=== PATIENT | female | born 1960 | race Caucasian/White ===

== ENCOUNTER 2018-12-28 22:02 | Emergency (ER) | payer OTHER ==
[2018-12-28] MEDS ORDERED: Ondansetron 4 MG Tab.DIS PO ONE (22:41)
--- NOTE | 2018-12-28 22:49 | EDM.PDOC ---
ED HPI GENERAL MEDICAL PROBLEM - General Chief Complaint: Gastrointestinal Problem Stated Complaint: FAINTED FROM COLONOSCOPY PREP Time Seen by Provider: 12/28/18 22:20 Source of Information: Reports: Patient History Limitations: Reports: No Limitations - History of Present Illness INITIAL COMMENTS - FREE TEXT/NARRATIVE: 58-year-old female took a colonoscopy prep all day, tonight was sitting on the toilet and felt very nauseous and thought she was going to throw up. She called her to come in and help her and by that time she fainted. She went unresponsive and he didn't think he could feel a pulse so he gave her a few chest compressions but within a few minutes she opened her eyes and asked him what happened. She now feels much better. She did not have any emesis. No chest pain or shortness of breath. 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 Denies: Fever, Chills Respiratory: Denies: Shortness of Breath Cardiovascular: Denies: Chest Pain GI/Abdominal: Reports: Diarrhea, Nausea. Denies: Abdominal Pain, Vomiting ED EXAM, GENERAL - Physical Exam Exam: See Below Exam Limited By: No Limitations General Appearance: Alert, No Apparent Distress Eye Exam: Bilateral Eye: Normal Inspection Head: Atraumatic Respiratory/Chest: No Respiratory Distress, Lungs Clear Cardiovascular: Regular Rate, Rhythm. No: Tachycardia GI/Abdominal: Soft, Non-Tender Extremities: Normal Inspection. No: Pedal Edema Neurological: Alert, Oriented Course - Vital Signs Last Recorded V/S: Last Vital Signs Temp 97.4 F 12/28/18 22:17 Pulse 62 12/28/18 22:17 Resp 16 12/28/18 22:17 BP 118/77 12/28/18 22:17 Pulse Ox 96 12/28/18 22:17 Orthostatic Blood Pressure [ 94/69 Standing] Orthostatic Blood Pressure [ 123/72 Sitting] Orthostatic Blood Pressure [ 126/73 Supine] - Orders/Labs/Meds Meds: Medications Discontinued Medications Generic Name Dose Route Start Last Admin Trade Name Elizabeth PRN Reason Stop Dose Admin Ondansetron HCl 4 mg 12/28/18 22:41 12/28/18 22:44 Zofran Odt PO 12/28/18 22:42 4 mg ONETIME ONE Administration - Re-Assessments/Exams Free Text/Narrative Re-Assessment/Exam: 12/28/18 22:48 Orthostatic blood pressures were checked and systolic pressure did drop when standing but did not have significant symptoms. She was given 1 dose of oral Zofran, and encouraged to continue with frequent small amounts of fluid. Departure - Departure Time of Disposition: 22:53 Disposition: Home, Self-Care 01 Clinical Impression: Syncope, vasovagal - Discharge Information Instructions: Syncope, [id number] Referrals: Jaclyn Cuevas PA-C [Primary Care Provider] - Forms: ED Department Discharge Care Plan Goals: Frequent small amounts of hydration while awake will be helpful. Move slowly this evening, and return in the morning for you're procedure as scheduled. Return anytime if worsening or recurring fainting for further evaluation.
== END 2018-12-28 22:56 | disposition home or self-care (01) ==
LOC: JP.ED 22:02
DX: R55 Syncope and collapse (principal)
CPT/HCPCS: 99283; A9270

== ENCOUNTER 2018-12-29 07:58 | Day surgery (SDC) | payer OTHER ==
[2018-12-29] MEDS ORDERED: Lactated Ringers 1,000 ML IV SCH (08:30)
[2018-12-29] MEDS ORDERED: fentaNYL 100 MCG/2 ML SDV ONE (09:10)
[2018-12-29] MEDS ORDERED: Midazolam 1 MG/ML 2 ML SDV ONE (09:10)
[2018-12-29] MEDS ORDERED: Propofol 200 MG/20 ML SDV ONE (09:10)
--- NOTE | 2018-12-29 13:55 | OR ---
DATE OF PROCEDURE: 12/29/2018 SURGEON: Farooq Reynolds MD PREOPERATIVE DIAGNOSIS: Colon cancer screening. POSTOPERATIVE DIAGNOSIS: Unremarkable colonoscopy. PROCEDURE: Colonoscopy to the cecum. ANESTHESIA: IV anesthesia with monitored anesthesia care. INDICATION: This 58-year-old white female is referred for a colonoscopy for colon cancer screening. She says her last colonoscopic exam was done 10 years ago. I counseled her for the procedure, including risks and alternatives, and she gave her informed consent to proceed. DESCRIPTION OF PROCEDURE: The patient was placed in the left lateral decubitus position. IV anesthesia was administered by the Anesthesia Service. Time-out was held. A rectal exam was performed, which was unremarkable. The flexible video Olympus colonoscope was introduced through her anus, up her rectum, out her colon all the way to the cecum. Once the cecum was reached, the scope was slowly withdrawn, examining the mucosa throughout. No mucosal abnormalities were noted. The scope was retroflexed in the rectum with the distal rectum appearing unremarkable. The scope was straightened and removed. She tolerated the procedure well. Farooq Reynolds MD /[id number]
== END 2018-12-29 10:50 | disposition home or self-care (01) ==
LOC: JP.SDS 07:58
PROVIDERS: ATTEND Surgery
DX: Z12.11 Encounter for screening for malignant neoplasm of colon (principal); E78.5 Hyperlipidemia, unspecified
CPT/HCPCS: 45378; J2250; J2704; J3010; J7120

== ENCOUNTER 2025-01-28 08:37 | Emergency (ER) | payer MEDICARE, BC ==
[2025-01-28 10:16] LABS: BASOPHILS ABSOLUTE AUTO 0.05 K/uL (0.00-0.10); BASOPHILS PERCENT AUTO 0.5 % (0.1-1.3); EOSINOPHILS ABSOLUTE AUTO 0.09 K/uL (0.00-0.40); EOSINOPHILS PERCENT AUTO 0.9 % (0.0-5.4); IMMATURE GRAN ABSOLUTE AUTO 0.03 K/uL (0.00-0.23); IMMATURE GRAN PERCENT AUTO 0.3 % (0.0-0.7); LYMPHOCYTES ABSOLUTE AUTO 1.54 K/uL (0.8-3.3); LYMPHOCYTES PERCENT AUTO 14.8 % (11.4-47.7); MONOCYTES ABSOLUTE AUTO 0.54 K/uL (0.20-0.90); MONOCYTES PERCENT AUTO 5.2 % (3.3-12.6); NEUTROPHILS ABSOLUTE AUTO 8.15 K/uL (1.0-7.6); NEUTROPHILS PERCENT AUTO 78.3 % (40.0-78.1); PLATELET COUNT,PLT 301 K/uL (130-375); RED BLOOD CELL COUNT 4.24 M/uL (3.77-5.24); WHITE BLOOD CELL COUNT,WBC 10.4 K/uL (3.2-11.0)
[2025-01-28 10:36] LABS: A/G RATIO 1.0 (1.2-2.2); ALANINE AMINOTRANSFERASE,ALT 37 U/L (12-78); ASPARTATE AMNIOTRANSFERASE,AST 25 U/L (15-37); BILIRUBIN TOTAL 0.5 mg/dL (0.2-1.0); BLOOD UREA NITROGEN,BUN 13 mg/dL (7-18); CARBON DIOXIDE,CO2 29 mmol/L (21-32); CHLORIDE,CL 104 mmol/L (100-108); CREATININE 0.7 mg/dL (0.6-1.0); EST CRCL DRUG DOSING (CG) 68.27 mL/min; ESTIMATED GFR 95 mL/min (>60); GLUCOSE RANDOM 103 mg/dL (74-106); POTASSIUM,K 4.0 mmol/L (3.6-5.2); PROTEIN TOTAL,TP 7.3 g/dL (6.4-8.2); SODIUM,NA 140 mmol/L (140-148)
[2025-01-28 11:44] LABS: APPEARANCE,URINE CLEAR (CLEAR); GLUCOSE,URINE NEGATIVE (NEGATIVE); OCCULT BLOOD,URINE NEGATIVE (NEGATIVE)
[2025-01-28 11:48] LABS: SQUAMOUS EPITHELIAL CELLS,UR RARE /HPF; UROTHELIAL CELLS,URINE NOT SEEN /HPF
== END 2025-01-28 12:30 | disposition home or self-care (01) ==
LOC: JP.ED 08:37
DX: H83.2X9 Labyrinthine dysfunction, unspecified ear (principal); E78.00 Pure hypercholesterolemia, unspecified; Z79.82 Long term (current) use of aspirin; Z79.899 Other long term (current) drug therapy
CPT/HCPCS: 36415; 70450; 70450-26; 71045; 71045-26; 80053; 81001; 85025; 93005; 93010; 96360; 99284; 99284-25; A9270-GY; J7030